=== PATIENT | male | born 1940 | race Caucasian/White ===

== ENCOUNTER 2020-03-13 10:13 | Observation (INO) ==
[2020-03-13] MEDS ORDERED: Isovue-370 500 ML BOTTLE IVP ONE (10:46)
[2020-03-13 11:00] LABS: Basophils % 0.9 %; Eosinophils % 0.4 %; Hematocrit 36.7 % (37.5-50.1); Hemoglobin 11.3 g/dL (12.9-16.9); Immature Granulocytes % 2.6 % (0-4); Lymphocytes # 0.4 K/mcL (0.6-4.6); Lymphocytes % 9.3 %; Mean Corpuscular HGB Conc 30.8 g/dL (31.6-35.5); Mean Corpuscular Hemoglobin 30.1 pg (28.0-33.3); Mean Corpuscular Volume 97.9 fL (83.0-100.0); Mean Platelet Volume 10.2 fL (9.4-12.4); Monocytes # 0.3 K/mcL (0.0-1.3); Neutrophils # 3.7 K/mcL (1.6-8.9); Platelet Count 188 K/mcL (140-400); Red Blood Count 3.75 M/mcL (4.19-5.50); Red Cell Distribution Width 19.9 % (11.5-14.5); Segmented Neutrophils % 80.8 %; White Blood Count 4.5 K/mcL (4.3-11.1)
[2020-03-13 11:17] LABS: Prothrombin Time 11.9 Seconds (9.4-12.1)
[2020-03-13 11:19] LABS: Activated Partial Thrombo Time 27.2 Seconds (26.0-36.0)
[2020-03-13 11:22] LABS: Alanine Aminotransferase 27 Units/L (7-52); Albumin 2.6 g/dL (3.5-5.7); Alkaline Phosphatase 114 Units/L (34-104); Aspartate Amino Transferase 51 Units/L (13-39); BUN/Creatinine Ratio 17 (6-26); Bilirubin,Direct 0.2 mg/dL (0.0-0.2); Bilirubin,Indirect 0.4 mg/dL (0.0-1.0); Bilirubin,Total 0.6 mg/dL (0.3-1.0); Blood Urea Nitrogen 16 mg/dL (8-23); Calcium 7.7 mg/dL (8.6-10.3); Carbon Dioxide 23 mEq/L (23-29); Chloride 100 mEq/L (98-107); Globulin 2.7 g/dL (2.4-3.5); Glucose 106 mg/dL (70-105); Lipase 27 Units/L (11-82); Osmolality,Calculated 272 (280-300); Potassium 4.3 mEq/L (3.5-5.1); Sodium 130 mEq/L (136-145); Total Protein 5.3 g/dL (6.4-8.9); Troponin I < 0.03 ng/mL (< 0.04); eGFR For African Americans > 60 (> 60); eGFR For Non-African Americans > 60 (> 60)
[2020-03-13 11:50] LABS: Amorphous Sediment,Urine Few per hpf (None-Few); Bilirubin,Urine Negative (Negative); Blood,Urine Moderate (Negative); Calcium Oxalate Crystals,Urine Present; Clarity,Urine Clear (Clear); Color,Urine Yellow (Yellow); Glucose,Urine (UA) Normal (Normal); Granular Casts,Urine Few per lpf (None Seen); Hyaline Casts,Urine Moderate per lpf (None Seen); Ketones,Urine Negative (Negative); Leukocyte Esterase,Urine Negative (Negative); Mucus,Urine Few per lpf (None-Few); Nitrite,Urine Negative (Negative); PH,Urine 5.5 pH Units (5.0-8.0); Protein,Urine Trace mg/dL (Neg-Trace); RBC,Urine 50-100 per hpf (0-3); Renal Epithelial Cells,Urine Few per hpf (None-Few); Uric Acid Crystals,Urine Present; Urobilinogen,Urine Normal (Normal); WBC,Urine 15-30 per hpf (0-3)
[2020-03-13] MEDS ORDERED: MetroNIDAZOLE 500 MG/100 ML 500 MG/100 ML BAG IVPB ONE (13:19)
[2020-03-13] MEDS ORDERED: Ondansetron 4 MG/2 ML VIAL IVP PRN (15:17)
[2020-03-13] MEDS ORDERED: *HR* HYDROcodone/Acet 5/325 mg TABLET PO PRN (15:17)
[2020-03-13] MEDS ORDERED: Naloxone 0.4 MG/ML INJ IVP PRN (15:17)
[2020-03-13] MEDS ORDERED: MOM Conc 10 ML UD.LIQ PO PRN (15:17)
[2020-03-13] MEDS ORDERED: Mag Hydrox/Al Hydrox/Simeth 30 ML UDC PO PRN (15:17)
[2020-03-13] MEDS ORDERED: *HR* Promethazine 25 MG/ML VIAL IVP PRN (15:17)
[2020-03-13] MEDS: cefTRIAXone 1,000 MG in Water for inj. (sterile) 10 ML IVP SCH (16:12)
[2020-03-13] MEDS: Spironolactone 25 MG TABLET PO SCH (16:12)
[2020-03-13] MEDS: Furosemide 20 MG/2 ML VIAL IVP SCH (21:41)
[2020-03-13] MEDS: MetroNIDAZOLE 500 MG/100 ML 500 MG/100 ML BAG IVPB SCH (21:42)
[2020-03-14] MEDS: MetroNIDAZOLE 500 MG/100 ML 500 MG/100 ML BAG IVPB SCH ×3 (05:17→22:06)
[2020-03-14 06:13] LABS: Hematocrit 29.4 % (37.5-50.1); Mean Corpuscular HGB Conc 32.3 g/dL (31.6-35.5); Mean Corpuscular Hemoglobin 31.1 pg (28.0-33.3); Mean Corpuscular Volume 96.4 fL (83.0-100.0); Platelet Count 120 K/mcL (140-400); Red Blood Count 3.05 M/mcL (4.19-5.50); Red Cell Distribution Width 19.9 % (11.5-14.5)
[2020-03-14 06:17] LABS: White Blood Count 8.6 K/mcL (4.3-11.1)
[2020-03-14 06:18] LABS: Hemoglobin 9.5 g/dL (12.9-16.9)
[2020-03-14 06:35] LABS: BUN/Creatinine Ratio 17 (6-26); Blood Urea Nitrogen 17 mg/dL (8-23); Calcium 7.6 mg/dL (8.6-10.3); Carbon Dioxide 23 mEq/L (23-29); Chloride 100 mEq/L (98-107); Glucose 90 mg/dL (70-105); Magnesium 1.4 mg/dL (1.6-2.6); Osmolality,Calculated 271 (280-300); Phosphorous 3.6 mg/dL (2.7-4.5); Potassium 4.2 mEq/L (3.5-5.1); Sodium 130 mEq/L (136-145); eGFR For African Americans > 60 (> 60); eGFR For Non-African Americans > 60 (> 60)
[2020-03-14 06:36] LABS: Anisocytosis 1+ (Not Present); Neutrophils # 8.6 K/mcL (1.6-8.9); Platelet Estimate Normal (Normal)
[2020-03-14 07:33] LABS: Hepatitis B Surface Antigen Nonreactive (Nonreactive)
[2020-03-14 08:02] LABS: Hepatitis B Core IgM Nonreactive (Nonreactive); Hepatitis C Virus Antibody Nonreactive (Nonreactive)
[2020-03-14 08:03] LABS: Hepatitis A Antibody IgM Nonreactive (Nonreactive)
[2020-03-14] MEDS: Spironolactone 25 MG TABLET PO SCH (09:08)
[2020-03-14] MEDS: Furosemide 20 MG/2 ML VIAL IVP SCH (09:08)
[2020-03-14 13:20] LABS: % Iron Saturation 7 % (20-55); Iron 17 mcg/dL (65-175); Transferrin 177 mg/dL (203-362)
[2020-03-14 13:38] LABS: Ferritin 188 ng/mL (20-250)
[2020-03-14 13:58] LABS: Amylase,Peritoneal Fluid < 10 Units/L (No Ref Range); Glucose,Peritoneal Fluid 85 mg/dL (No Ref Range); LDH,Peritoneal Fluid 31 Units/L (No Ref Range)
[2020-03-14 15:15] LABS: Appearance of Peritoneal Fl CLEAR (Clear)
[2020-03-14 15:23] LABS: Basophils,Peritoneal Fluid 0 %; Eosinophils,Peritoneal Fluid 0 %
[2020-03-14] MEDS: cefTRIAXone 1,000 MG in Water for inj. (sterile) 10 ML IVP SCH (15:52)
[2020-03-15 04:15] LABS: Basophils % 0.7 %
[2020-03-15 04:17] LABS: Hematocrit 26.9 % (37.5-50.1); Hemoglobin 8.8 g/dL (12.9-16.9); Lymphocytes # 0.2 K/mcL (0.6-4.6); Lymphocytes % 12.8 %; Mean Corpuscular HGB Conc 32.7 g/dL (31.6-35.5); Mean Corpuscular Hemoglobin 31.4 pg (28.0-33.3); Mean Corpuscular Volume 96.1 fL (83.0-100.0); Mean Platelet Volume 9.8 fL (9.4-12.4); Monocytes # 0.2 K/mcL (0.0-1.3); Monocytes % 10.6 %; Platelet Count 100 K/mcL (140-400); Red Cell Distribution Width 19.7 % (11.5-14.5); Segmented Neutrophils % 70.9 %; White Blood Count 1.4 K/mcL (4.3-11.1)
[2020-03-15 04:23] LABS: INR 1.2; Prothrombin Time 13.4 Seconds (9.4-12.1)
[2020-03-15 04:35] LABS: Alanine Aminotransferase 19 Units/L (7-52); Albumin 2.1 g/dL (3.5-5.7); Albumin/Globulin Ratio 0.9 (1.1-2.2); Alkaline Phosphatase 90 Units/L (34-104); Aspartate Amino Transferase 39 Units/L (13-39); BUN/Creatinine Ratio 22 (6-26); Bilirubin,Total 0.6 mg/dL (0.3-1.0); Blood Urea Nitrogen 21 mg/dL (8-23); Calcium 7.4 mg/dL (8.6-10.3); Carbon Dioxide 23 mEq/L (23-29); Chloride 100 mEq/L (98-107); Globulin 2.3 g/dL (2.4-3.5); Glucose 92 mg/dL (70-105); Osmolality,Calculated 271 (280-300); Potassium 4.4 mEq/L (3.5-5.1); Sodium 129 mEq/L (136-145); Total Protein 4.4 g/dL (6.4-8.9); eGFR For African Americans > 60 (> 60); eGFR For Non-African Americans > 60 (> 60)
[2020-03-15] MEDS: MetroNIDAZOLE 500 MG/100 ML 500 MG/100 ML BAG IVPB SCH ×3 (05:23→21:18)
[2020-03-15 05:41] LABS: Anisocytosis 1+ (Not Present)
[2020-03-15 05:42] LABS: Platelet Estimate Slight Decrease (Normal)
[2020-03-15] MEDS: Spironolactone 25 MG TABLET PO SCH (08:09)
[2020-03-15] MEDS: Furosemide 20 MG/2 ML VIAL IVP SCH (08:12)
[2020-03-15 12:26] LABS: Hematocrit 27.7 % (37.5-50.1); Hemoglobin 8.9 g/dL (12.9-16.9); Mean Corpuscular HGB Conc 32.1 g/dL (31.6-35.5); Mean Corpuscular Hemoglobin 31.2 pg (28.0-33.3); Mean Corpuscular Volume 97.2 fL (83.0-100.0); Mean Platelet Volume 9.9 fL (9.4-12.4); Platelet Count 103 K/mcL (140-400); Red Blood Count 2.85 M/mcL (4.19-5.50); Red Cell Distribution Width 19.9 % (11.5-14.5); White Blood Count 1.2 K/mcL (4.3-11.1)
[2020-03-15 12:53] LABS: Lymphocytes # 0.5 K/mcL (0.6-4.6); Monocytes # 0.1 K/mcL (0.0-1.3); Neutrophils # 0.5 K/mcL (1.6-8.9); Platelet Estimate Slight Decrease (Normal)
[2020-03-15 12:54] LABS: Anisocytosis 1+ (Not Present); Poikilocytosis 1+ (Not Present)
[2020-03-15] MEDS: Albumin 25% 25gram/100mL 25 GM/100 ML IV.SOLN IVC SCH ×2 (13:53→15:24)
[2020-03-15] MEDS: cefTRIAXone 1,000 MG in Water for inj. (sterile) 10 ML IVP SCH (15:24)
[2020-03-16 00:32] LABS: Fluid Source for Albumin ASCITES
[2020-03-16] MEDS: MetroNIDAZOLE 500 MG/100 ML 500 MG/100 ML BAG IVPB SCH (05:45)
[2020-03-16 06:26] LABS: Hematocrit 25.3 % (37.5-50.1); Mean Corpuscular Volume 96.9 fL (83.0-100.0); Red Blood Count 2.61 M/mcL (4.19-5.50)
[2020-03-16 06:28] LABS: Basophils % 0.7 %; Eosinophils % 0.7 %; Immature Granulocytes % 5.2 % (0-4); Immature Platelets 2.6 % (1.1-6.1); Lymphocytes # 0.3 K/mcL (0.6-4.6); Mean Corpuscular HGB Conc 31.6 g/dL (31.6-35.5); Mean Corpuscular Hemoglobin 30.7 pg (28.0-33.3); Mean Platelet Volume 10.1 fL (9.4-12.4); Monocytes # 0.2 K/mcL (0.0-1.3); Monocytes % 12.6 %; Neutrophils # 0.8 K/mcL (1.6-8.9); Red Cell Distribution Width 19.6 % (11.5-14.5); Segmented Neutrophils % 57.8 %; White Blood Count 1.4 K/mcL (4.3-11.1)
[2020-03-16 06:40] LABS: Alanine Aminotransferase 16 Units/L (7-52); Albumin 2.3 g/dL (3.5-5.7); Albumin/Globulin Ratio 1.3 (1.1-2.2); Alkaline Phosphatase 83 Units/L (34-104); Aspartate Amino Transferase 34 Units/L (13-39); BUN/Creatinine Ratio 30 (6-26); Bilirubin,Total 0.5 mg/dL (0.3-1.0); Blood Urea Nitrogen 23 mg/dL (8-23); Calcium 7.4 mg/dL (8.6-10.3); Carbon Dioxide 24 mEq/L (23-29); Chloride 101 mEq/L (98-107); Globulin 1.8 g/dL (2.4-3.5); Glucose 85 mg/dL (70-105); Osmolality,Calculated 271 (280-300); Potassium 3.9 mEq/L (3.5-5.1); Sodium 129 mEq/L (136-145); Total Protein 4.1 g/dL (6.4-8.9); eGFR For African Americans > 60 (> 60); eGFR For Non-African Americans > 60 (> 60)
[2020-03-16 06:56] LABS: Platelet Count 89 K/mcL (140-400); Platelet Estimate Decreased (Normal)
[2020-03-16 06:57] LABS: Anisocytosis 1+ (Not Present); Poikilocytosis 1+ (Not Present)
[2020-03-16 07:51] VITALS: BP 95/56
[2020-03-16] MEDS: Furosemide 20 MG/2 ML VIAL IVP SCH (09:15)
[2020-03-16] MEDS: Spironolactone 25 MG TABLET PO SCH (09:15)
[2020-03-17 10:03] LABS: AFP Tumor Marker Non-Pregnant 1 ng/mL (0-9); ANA IgG by ELISA NONE DETECTED (None Detected); F-Actin (sm muscle) Ab IgG 3 Units (0-19)
== END 2020-03-16 10:21 | disposition home or self-care (01) ==
LOC: EMEROOARM 10:13 → 3ANU 10:13 → SUATTDRO 13:52 → 3ANU 15:04
PROVIDERS: ADMIT Internal Medicine; ATTEND Internal Medicine

== ENCOUNTER 2020-07-10 10:42 | Inpatient (IN) ==
[2020-07-10 11:42] LABS: Basophils # 0.1 K/mcL (0.0-0.2); Basophils % 0.8 %; Eosinophils % 0.2 %; Hematocrit 31.5 % (37.5-50.1); Hemoglobin 10.5 g/dL (12.9-16.9); Immature Granulocytes % 4.4 % (0-4); Lymphocytes # 0.5 K/mcL (0.6-4.6); Lymphocytes % 7.3 %; Mean Corpuscular HGB Conc 33.3 g/dL (31.6-35.5); Mean Corpuscular Hemoglobin 35.5 pg (28.0-33.3); Mean Corpuscular Volume 106.4 fL (83.0-100.0); Mean Platelet Volume 9.5 fL (9.4-12.4); Monocytes # 0.4 K/mcL (0.0-1.3); Platelet Count 133 K/mcL (140-400); Red Blood Count 2.96 M/mcL (4.19-5.50); Red Cell Distribution Width 14.7 % (11.5-14.5); Segmented Neutrophils % 81.3 %; White Blood Count 6.2 K/mcL (4.3-11.1)
[2020-07-10 12:03] LABS: Alanine Aminotransferase 25 Units/L (7-52); Albumin 2.5 g/dL (3.5-5.7); Alkaline Phosphatase 109 Units/L (34-104); Aspartate Amino Transferase 36 Units/L (13-39); BUN/Creatinine Ratio 32 (6-26); Bilirubin,Direct 0.2 mg/dL (0.0-0.2); Bilirubin,Indirect 0.6 mg/dL (0.0-1.0); Bilirubin,Total 0.8 mg/dL (0.3-1.0); Blood Urea Nitrogen 32 mg/dL (8-23); Calcium 7.9 mg/dL (8.6-10.3); Carbon Dioxide 21 mEq/L (23-29); Chloride 99 mEq/L (98-107); Globulin 2.6 g/dL (2.4-3.5); Glucose 103 mg/dL (70-105); Magnesium 1.7 mg/dL (1.6-2.6); Osmolality,Calculated 269 (280-300); Potassium 5.3 mEq/L (3.5-5.1); Sodium 126 mEq/L (136-145); Total Protein 5.1 g/dL (6.4-8.9); Troponin I < 0.03 ng/mL (< 0.04); eGFR For African Americans > 60 (> 60); eGFR For Non-African Americans > 60 (> 60)
[2020-07-10 12:51] LABS: Adenovirus Not Detected (Not Detect); Bordetella Pertussis Not Detected (Not Detect); Chlamydophila pneumoniae Not Detected (Not Detect); Coronavirus 229E Not Detected (Not Detect); Coronavirus HKU1 Not Detected (Not Detect); Coronavirus NL63 Not Detected (Not Detect); Coronavirus OC43 Not Detected (Not Detect); Human Metapneumovirus Not Detected (Not Detect); Human Rhinovirus/Enterovirus Not Detected (Not Detect); Influenza A Subtype 2009 H1 Not Detected (Not Detect); Influenza B Not Detected (Not Detect); Mycoplasma pneumoniae Not Detected (Not Detect); Parainfluenza Virus 1 Not Detected (Not Detect); Parainfluenza Virus 2 Not Detected (Not Detect); Parainfluenza Virus 3 Not Detected (Not Detect); Parainfluenza Virus 4 Not Detected (Not Detect); Respiratory Syncytial Virus Not Detected (Not Detect); SARS-CoV-2 Not Detected (Not Detect)
[2020-07-10 13:50] LABS: Bacteria,Urine Few per hpf (None-Few); Bilirubin,Urine Negative (Negative); Blood,Urine Small (Negative); Clarity,Urine Clear (Clear); Color,Urine Yellow (Yellow); Glucose,Urine (UA) Normal (Normal); Hyaline Casts,Urine Moderate per lpf (None Seen); Ketones,Urine Negative (Negative); Leukocyte Esterase,Urine Negative (Negative); Mucus,Urine Few per lpf (None-Few); Nitrite,Urine Negative (Negative); Protein,Urine Negative (Neg-Trace); Specific Gravity,Urine 1.023 (1.010-1.025); Squamous Epithelial Cell,Urine Few per hpf (None-Few); Urobilinogen,Urine Normal (Normal)
[2020-07-10] MEDS ORDERED: 0.9 % Sodium Chloride 500 ML IVC ONE (14:12)
[2020-07-10] MEDS ORDERED: Albumin 25% 25gram/100mL 25 GM/100 ML IV.SOLN IVPB ONE ×2 (14:12→16:56)
[2020-07-10] MEDS ORDERED: Ondansetron 4 MG/2 ML VIAL IVP PRN (15:59)
[2020-07-10] MEDS ORDERED: Naloxone 0.4 MG/ML INJ IVP PRN (15:59)
[2020-07-10 17:13] LABS: Amylase 25 Units/L (29-103); Ferritin 570 ng/mL (20-250)
[2020-07-10 17:49] LABS: Hematocrit 29.9 % (37.5-50.1); Hemoglobin 9.9 g/dL (12.9-16.9)
[2020-07-10 17:53] LABS: INR 1.1; Prothrombin Time 12.6 Seconds (9.4-12.1)
[2020-07-10 18:15] LABS: % Iron Saturation 21 % (20-55); Iron 48 mcg/dL (65-175); Lipase 16 Units/L (11-82); Transferrin 163 mg/dL (203-362); Troponin I < 0.03 ng/mL (< 0.04)
[2020-07-10] MEDS: Calcium Gluconate 1gm/50mL 1 GM/50 ML BAG IVPB SCH ×2 (18:37→19:52)
[2020-07-10 22:58] LABS: Hematocrit 27.5 % (37.5-50.1); Hemoglobin 9.2 g/dL (12.9-16.9)
[2020-07-11 02:54] LABS: Hematocrit 26.1 % (37.5-50.1); Hemoglobin 8.7 g/dL (12.9-16.9); Immature Platelets 2.3 % (1.1-6.1); Mean Corpuscular HGB Conc 33.3 g/dL (31.6-35.5); Mean Corpuscular Hemoglobin 34.9 pg (28.0-33.3); Mean Corpuscular Volume 104.8 fL (83.0-100.0); Mean Platelet Volume 9.6 fL (9.4-12.4); Red Blood Count 2.49 M/mcL (4.19-5.50); Red Cell Distribution Width 14.5 % (11.5-14.5)
[2020-07-11 03:02] LABS: Estimated Average Glucose 100 mg/dl; Hemoglobin A1C 5.1 %
[2020-07-11 03:11] LABS: BUN/Creatinine Ratio 34 (6-26); Blood Urea Nitrogen 34 mg/dL (8-23); Calcium 8.1 mg/dL (8.6-10.3); Carbon Dioxide 22 mEq/L (23-29); Chloride 99 mEq/L (98-107); Chol/HDL Ratio 3.3 (0-4.9); Cholesterol 39 mg/dL (< 200); Glucose 81 mg/dL (70-105); HDL Cholesterol 12 mg/dL (40-59); LDL Cholesterol,Calculated 18 mg/dL (< 100); Osmolality,Calculated 271 (280-300); Sodium 127 mEq/L (136-145); Triglycerides 46 mg/dL (< 150); eGFR For African Americans > 60 (> 60); eGFR For Non-African Americans > 60 (> 60)
[2020-07-11] MEDS ORDERED: Nitroglycerin 0.4 MG TAB.SUBL SL PRN (07:29)
[2020-07-11] MEDS: Albumin 25% 25gram/100mL 25 GM/100 ML IV.SOLN IVPB SCH ×2 (08:54→17:02)
[2020-07-11] MEDS: Aspirin Enteric Coated 81 MG Tablet PO SCH (08:54)
[2020-07-11] MEDS: Cyanocobalamin (B-12) 1,000 MCG TABLET PO SCH (08:54)
[2020-07-11 09:54] LABS: INR 1.1; Prothrombin Time 12.9 Seconds (9.4-12.1)
[2020-07-11 10:10] LABS: Prostate Specific Antigen 0.29 ng/mL (Less than 4.00)
[2020-07-11 11:37] LABS: Hepatitis B Surface Antigen Nonreactive (Nonreactive)
[2020-07-11 12:06] LABS: HIV-1&2 Antibody & p24 Ag Nonreactive (Nonreactive)
[2020-07-11 12:08] LABS: Hepatitis C Virus Antibody Nonreactive (Nonreactive)
[2020-07-11 16:48] LABS: RBC,Peritoneal Fluid 3000 RBC/mcL
[2020-07-11 16:52] LABS: Appearance of Peritoneal Fl HAZY (Clear)
[2020-07-11 17:33] LABS: Amylase,Peritoneal Fluid < 10 Units/L (No Ref Range); Glucose,Peritoneal Fluid 70 mg/dL (No Ref Range); LDH,Peritoneal Fluid 26 Units/L (No Ref Range); Total Protein,Peritoneal Fluid < 2.0 g/dL
[2020-07-11 17:42] LABS: Basophils,Peritoneal Fluid 0 %; Eosinophils,Peritoneal Fluid 0 %
[2020-07-11] MEDS ORDERED: Metoprolol XL (24 HR) Succ 50 MG TAB.ER.24H PO SCH (21:00)
[2020-07-12] MEDS: Albumin 25% 25gram/100mL 25 GM/100 ML IV.SOLN IVPB SCH ×4 (00:14→23:14)
[2020-07-12 04:55] LABS: Hematocrit 22.5 % (37.5-50.1); Hemoglobin 7.6 g/dL (12.9-16.9); Mean Corpuscular HGB Conc 33.8 g/dL (31.6-35.5); Mean Corpuscular Hemoglobin 34.5 pg (28.0-33.3); Mean Corpuscular Volume 102.3 fL (83.0-100.0); Mean Platelet Volume 9.5 fL (9.4-12.4); Red Cell Distribution Width 14.3 % (11.5-14.5)
[2020-07-12 04:57] LABS: Platelet Count 65 K/mcL (140-400)
[2020-07-12 05:16] LABS: BUN/Creatinine Ratio 43 (6-26); Blood Urea Nitrogen 32 mg/dL (8-23); Calcium 8.1 mg/dL (8.6-10.3); Carbon Dioxide 19 mEq/L (23-29); Chloride 101 mEq/L (98-107); Glucose 92 mg/dL (70-105); Magnesium 1.4 mg/dL (1.6-2.6); Osmolality,Calculated 273 (280-300); Potassium 4.5 mEq/L (3.5-5.1); Sodium 128 mEq/L (136-145); eGFR For African Americans > 60 (> 60); eGFR For Non-African Americans > 60 (> 60)
[2020-07-12] MEDS: Cyanocobalamin (B-12) 1,000 MCG TABLET PO SCH (08:43)
[2020-07-12] MEDS: Pantoprazole 40 MG VIAL IVP SCH ×2 (08:43→16:30)
[2020-07-12] MEDS: Aspirin Enteric Coated 81 MG Tablet PO SCH (08:43)
[2020-07-13] MEDS: Pantoprazole 40 MG VIAL IVP SCH ×2 (05:47→16:51)
[2020-07-13 06:46] LABS: AFP Tumor Marker Non-Pregnant 1 ng/mL (0-9); Cancer Antigen-GI (CA 19-9) 8 U/mL (0-37)
[2020-07-13 06:53] LABS: Basophils % 0.7 %; Eosinophils % 0.3 %; Hematocrit 22.3 % (37.5-50.1); Hemoglobin 7.6 g/dL (12.9-16.9); Immature Granulocytes % 3.3 % (0-4); Immature Platelets 2.5 % (1.1-6.1); Lymphocytes # 0.3 K/mcL (0.6-4.6); Lymphocytes % 8.3 %; Mean Corpuscular HGB Conc 34.1 g/dL (31.6-35.5); Mean Corpuscular Hemoglobin 35.5 pg (28.0-33.3); Mean Corpuscular Volume 104.2 fL (83.0-100.0); Mean Platelet Volume 9.8 fL (9.4-12.4); Monocytes # 0.2 K/mcL (0.0-1.3); Neutrophils # 2.4 K/mcL (1.6-8.9); Red Blood Count 2.14 M/mcL (4.19-5.50); Red Cell Distribution Width 14.3 % (11.5-14.5); Segmented Neutrophils % 80.4 %
[2020-07-13 06:56] LABS: Platelet Count 72 K/mcL (140-400)
[2020-07-13 07:18] LABS: Alanine Aminotransferase 12 Units/L (7-52); Albumin 3.2 g/dL (3.5-5.7); Albumin/Globulin Ratio 2.1 (1.1-2.2); Alkaline Phosphatase 68 Units/L (34-104); Aspartate Amino Transferase 20 Units/L (13-39); BUN/Creatinine Ratio 31 (6-26); Bilirubin,Direct 0.3 mg/dL (0.0-0.2); Bilirubin,Indirect 0.6 mg/dL (0.0-1.0); Bilirubin,Total 0.9 mg/dL (0.3-1.0); Blood Urea Nitrogen 25 mg/dL (8-23); Carbon Dioxide 19 mEq/L (23-29); Chloride 104 mEq/L (98-107); Globulin 1.5 g/dL (2.4-3.5); Glucose 91 mg/dL (70-105); Magnesium 1.8 mg/dL (1.6-2.6); Osmolality,Calculated 276 (280-300); Phosphorous 2.5 mg/dL (2.7-4.5); Potassium 3.8 mEq/L (3.5-5.1); Sodium 131 mEq/L (136-145); Total Protein 4.7 g/dL (6.4-8.9); eGFR For African Americans > 60 (> 60); eGFR For Non-African Americans > 60 (> 60)
[2020-07-13] MEDS ORDERED: Spironolactone 25 MG TABLET PO SCH (09:00)
[2020-07-13] MEDS: Albumin 25% 25gram/100mL 25 GM/100 ML IV.SOLN IVPB SCH (10:13)
[2020-07-13] MEDS: Aspirin Enteric Coated 81 MG Tablet PO SCH (10:13)
[2020-07-13] MEDS: Cyanocobalamin (B-12) 1,000 MCG TABLET PO SCH (10:13)
[2020-07-13] MEDS: Furosemide 20 MG TABLET PO SCH (10:14)
[2020-07-13] MEDS ORDERED: Albumin 25% 25gram/100mL 25 GM/100 ML IV.SOLN IVPB SCH (10:15)
[2020-07-13] MEDS ORDERED: Spironolactone 25 MG TABLET PO ONE (13:04)
[2020-07-13] MEDS ORDERED: Metoprolol XL (24 HR) Succ 25 MG TAB.ER.24H PO SCH (21:00)
[2020-07-14 04:15] LABS: Basophils % 0.7 %; Hemoglobin 8.6 g/dL (12.9-16.9); Immature Granulocytes % 2.2 % (0-4)
[2020-07-14 04:17] LABS: Eosinophils % 0.4 %; Hematocrit 25.4 % (37.5-50.1); Immature Platelets 2.7 % (1.1-6.1); Lymphocytes # 0.4 K/mcL (0.6-4.6); Lymphocytes % 7.7 %; Mean Corpuscular HGB Conc 33.9 g/dL (31.6-35.5); Mean Corpuscular Hemoglobin 35.1 pg (28.0-33.3); Mean Corpuscular Volume 103.7 fL (83.0-100.0); Mean Platelet Volume 9.9 fL (9.4-12.4); Monocytes # 0.3 K/mcL (0.0-1.3); Monocytes % 5.5 %; Neutrophils # 3.8 K/mcL (1.6-8.9); Red Blood Count 2.45 M/mcL (4.19-5.50); Red Cell Distribution Width 14.1 % (11.5-14.5); Segmented Neutrophils % 83.5 %; White Blood Count 4.5 K/mcL (4.3-11.1)
[2020-07-14 04:20] LABS: Platelet Count 92 K/mcL (140-400)
[2020-07-14 04:32] LABS: Alanine Aminotransferase 10 Units/L (7-52); Albumin 3.2 g/dL (3.5-5.7); Alkaline Phosphatase 78 Units/L (34-104); Aspartate Amino Transferase 20 Units/L (13-39); BUN/Creatinine Ratio 31 (6-26); Bilirubin,Direct 0.3 mg/dL (0.0-0.2); Bilirubin,Indirect 0.6 mg/dL (0.0-1.0); Bilirubin,Total 0.9 mg/dL (0.3-1.0); Blood Urea Nitrogen 29 mg/dL (8-23); Calcium 7.9 mg/dL (8.6-10.3); Carbon Dioxide 18 mEq/L (23-29); Chloride 101 mEq/L (98-107); Globulin 1.6 g/dL (2.4-3.5); Glucose 91 mg/dL (70-105); Magnesium 1.6 mg/dL (1.6-2.6); Osmolality,Calculated 273 (280-300); Phosphorous 2.8 mg/dL (2.7-4.5); Potassium 3.9 mEq/L (3.5-5.1); Sodium 129 mEq/L (136-145); Total Protein 4.8 g/dL (6.4-8.9); eGFR For African Americans > 60 (> 60); eGFR For Non-African Americans > 60 (> 60)
[2020-07-14] MEDS: Pantoprazole 40 MG VIAL IVP SCH (04:58)
[2020-07-14 07:19] LABS: Fluid Source for Albumin PERITONEAL
[2020-07-14 07:27] VITALS: BP 97/62
[2020-07-14] MEDS ORDERED: Albumin 25% 25gram/100mL 25 GM/100 ML IV.SOLN IVPB ONE (07:34)
[2020-07-14] MEDS: Furosemide 20 MG TABLET PO SCH (08:54)
[2020-07-14] MEDS: Aspirin Enteric Coated 81 MG Tablet PO SCH (08:54)
[2020-07-14] MEDS: Cyanocobalamin (B-12) 1,000 MCG TABLET PO SCH (08:55)
== END 2020-07-14 11:30 | disposition home or self-care (01) | DRG 432 ==
LOC: 2ANU 10:42 → EMEROOARM 10:42 → SUATTDRO 15:42 → 2ANU 16:55 → SUATTDRO 07-11 15:30
PROVIDERS: ADMIT Internal Medicine; ATTEND Internal Medicine